=== PATIENT | female | born 1975 | race Caucasian/White ===

== ENCOUNTER 2019-01-09 10:56 | Outpatient (REF) | payer BC, SELFPAY ==
[2019-01-09 21:30] LABS: Abs Immature Grans 0.01 k/cumm (0.0-0.09); Absolute Basophil Count 0.05 k/cumm (0.0-0.2); Absolute Lymphocyte Count 2.49 k/cumm (1.2-3.4); Absolute Monocyte Count 0.67 k/cumm (0.11-0.7); Absolute Neutrophil Count 4.69 k/cumm (1.2-6.7); Basophils % 0.6; Eosinophils % 2.5; HCT 40.4 % (36.0-46.0); HGB 13.5 g/dL (12.0-15.5); Immature Grans % 0.1; Lymphocytes % 30.7; Mean Corp. HGB Concentration 33.4 g/dL (32.0-36.0); Mean Corpuscular Hemoglobin 31.3 pg (27.0-33.0); Mean Corpuscular Volume 93.7 fL (80-95); Mean Platelet Volume 9.5 fL (8.0-11.0); Monocytes % 8.3; Neutrophils % 57.8; Platelet Count 410 x1000/uL (130-400); RBC 4.31 m/cumm (4.00-5.20); RBC Distribution Width 12.6 % (11.7-14.6); White Blood Cell Count 8.11 k/cumm (4.4-10.8)
[2019-01-09 21:50] LABS: ALT 26 U/L (14-59); AST 19 U/L (15-37); Albumin 3.6 g/dL (3.4-5.0); Alkaline Phosphatase 53 U/L (46-116); Anion Gap 7.9 mmol/L (3-11); BUN 9 mg/dL (7-18); Bilirubin, Total 0.3 mg/dL (0.2-1.0); CO2 28.1 mmol/L (21.0-32.0); Calcium 9.2 mg/dL (8.5-10.1); Chloride 105 mmol/L (98-107); Glucose 76 mg/dL (70-100); Lipase 271 U/L (73-393); Potassium 4.6 mmol/L (3.5-5.1); Sodium 141 mmol/L (136-145); Total Protein 8.2 g/dL (6.4-8.2)
== END 2019-01-09 11:16 ==
LOC: NCHCN 10:56
PROVIDERS: PCP Family Medicine; Visit Provider Family Medicine
DX: R10.11 Right upper quadrant pain (principal)
CPT/HCPCS: 80053; 83690; 85025

== ENCOUNTER 2019-01-29 13:23 | Outpatient (REF) | payer BC, SELFPAY ==
[2019-01-30 07:00] LABS: Vitamin D 25 Total 29.7 ng/ml (30-100)
[2019-01-31 10:18] LABS: HBs Antibody, Quant 169.5 mIU/mL (See Note); Hepatitis B Surface Ab Positive (See Note)
[2019-01-31 10:32] LABS: Hepatitis B Surface Ag Negative (Negative)
[2019-01-31 11:38] LABS: Hepatitis C Ab w Rflx HCV PCR Negative (Negative)
[2019-01-31 11:42] LABS: Hep A Total Ab w Rflx IgM Negative (Negative)
[2019-01-31 14:54] LABS: ANA Interpretation Negative (Negative)
[2019-01-31 16:29] LABS: Mitochondrial Ab, M2 <0.1 U
== END 2019-01-29 13:43 ==
LOC: NCHCN 13:23
PROVIDERS: PCP Family Medicine; Visit Provider Family Medicine
DX: R10.11 Right upper quadrant pain (principal); R93.2 Abnormal findings on diagnostic imaging of liver and biliary tract; Z11.59 Encounter for screening for other viral diseases; E55.9 Vitamin D deficiency, unspecified
CPT/HCPCS: 82306; 83516; 86706; 86709; 86803; 87340; 86038

== ENCOUNTER 2019-08-22 14:42 | Outpatient (REF) | payer BC, SELFPAY ==
[2019-08-22 21:56] LABS: C-Reactive Protein 0.83 mg/dL (0.0-0.3)
[2019-08-22 22:48] LABS: Iron 92 ug/dL (50-170); Total Iron Binding Capacity 334 ug/dL (250-450); Transferrin Sat 28 % (15-50)
[2019-08-22 23:02] LABS: ESR 16 mm/hr (0-20); Ferritin 84 ng/mL (8-252)
[2019-08-25 09:23] LABS: HBs Antibody, Quant <3.1 mIU/mL (See Note); Hepatitis B Surface Ab Negative (See Note)
[2019-08-25 11:26] LABS: Hep A Antibody IgM Negative (Negative)
[2019-08-25 11:54] LABS: IgG 1469 mg/dL (610-1,616)
[2019-08-25 12:46] LABS: IgA 260 mg/dL (85-499); Tissue Transglutaminase IgA <1.2 U/mL (<4.0)
[2019-08-25 16:47] LABS: ANA Interpretation Positive (Negative); ANA Titer Pattern 1:80 Homogeneous
[2019-08-26 11:26] LABS: Ceruloplasmin 38.3 mg/dL
[2019-08-27 14:49] LABS: Smooth Muscle Ab Screen Negative (Negative)
[2019-08-27 16:35] LABS: Liver/Kidney Microsome Type 1 <5.0 U
== END 2019-08-22 15:02 ==
LOC: NCHCN 14:42
PROVIDERS: PCP Family Medicine; Visit Provider Family Medicine
DX: R93.3 Abnormal findings on diagnostic imaging of other parts of digestive tract (principal); Z11.59 Encounter for screening for other viral diseases
CPT/HCPCS: 82390; 82784; 83516; 85652; 86706; 86709; 82728; 83540; 83550; 86038; 86140; 86255